=== PATIENT | female | born 2000 | race Caucasian/White ===

== ENCOUNTER 2025-01-22 13:11 | Outpatient (CLI) | payer BC, SELFPAY ==
--- OUTSIDE RECORDS SUMMARY | 2025-01-22 13:17 | XMS_ITS | Data Portability ---
Author Organization [facility] Address [address] [place] [address] Care Team Providers Care Can Closing Machine Tender Name Role Phone SHRADDHA HARRISON Primary Care Provider [phone] Assessment Encounter Date Assessment Date Assessment LastModified by Organization Details LastModified Time 04/05/2023 04/05/2023 Annual gynecological exam performed. Patient will come back in a year unless there are new symptoms. Not available 04/05/2023 15:04:35 Plan of Treatment Reminders Order Date Submit Date Provider Last Modified By Organization Details Last Modified Time Details Appointments None recorded. Lab dhea-sulfat e, serum 2024 025 [facility] (Lab), [address] [place], [address], 5 21:05:00 hormone panel, serum or plasma 2024 025 [facility] (Lab), [address] [place], [address], 5 21:05:02 progesteron e, serum 2024 025 [facility] (Lab), [address] [place], [address], 5 21:05:01 prolactin, serum 2024 025 [facility] (Lab), [address], [place], [address], 5 21:05:01 shbg (sex hormone-bin ding globulin), serum 2024 025 [facility] (Lab), [address], [place], [address], 5 21:05:02 testosteron e free/testos terone total, ratio, serum 2024 025 [facility] (Lab), [address], [place], [address], 5 21:05:03 test, urine 2024 025 [email or web address] [address], [address], [place], [address], 12:51:57 test, urine 2023 024 [email or web address] [address], [place], [address], 12:53:24 Referral None recorded. Procedures None recorded. Surgeries None recorded. Imaging None recorded. Medication Orders estradiol 2 mg tablet 2024 025 [place] [facility], [facility] [place], [address], 5 12:49:25 Diflucan 150 mg tablet 2022 023 [email or web address] [facility], [facility] [place], [address], 4 12:06:53 NuvaRing 0.12 mg-0.015 mg/24 hr vaginal 2022 023 [email or web address] [facility] [place] [address] [place], [address], 4 12:06:57 lidocaine 5 % topical ointment 2022 023 [facility], [address] [place], [address], 3 15:05:20 Anusol-HC 25 mg rectal suppository 2022 023 [facility], [address] , [place], [address], 3 15:05:16 Hemorrhoida l (phenylephr ine-hard fat) 0.25 %-88.7 % rectal suppository 2022 023 [facility], [facility] [place], [address], 3 15:05:10 Colace 100 mg capsule 2022 023 [facility], [facility] [place], [address], 3 15:05:07 Diflucan 150 mg tablet 2021 022 [email or web address] [facility], [facility] [place], [address], 4 12:06:53 Patient TargetsNo targets recorded. Patient InstructionsNo instructions recorded. Reason for Referral None Reported. Results Created Date Observation Date Name Description Value Unit Range Abnormal Flag Note LastModifiedBy Organization Detail LastModifiedTime 01/29/2001/28/2022 VAGIN ITIS/ VAGIN OSIS, DNA PROBE alvarado sp. detection, direct probe Negati ve negati ve Not Available [facility] [address] [facility], [place], [address], 01/29/2022 14:39:20 01/29/2001/28/2022 VAGIN ITIS/ VAGIN OSIS, DNA PROBE gardnerella vag. detection, direct probe Negati ve negati ve Not Available [facility] [address] [place] [address], [address], 01/29/2022 14:39:20 01/29/20 22 01/28/2022 VAGIN ITIS/ VAGIN OSIS, DNA PROBE trichomonas vag. detection, direct probe Negati ve negati ve Not Available [facility] [address] [place] [address], [phone], 01/29/2022 14:39:20 01/29/20 22 01/28/2022 CT/GC AND TRICH OMONA S VAGIN SOFIA (RRNA ), SWAB chlamydia trachomatis, PCR Negati ve negati ve Not Available [facility] [address] [place] [address], [phone], 01/29/2022 14:39:21 01/29/20 22 01/28/2022 CT/GC AND TRICH OMONA S VAGIN SOFIA (RRNA ), SWAB neisseria gonorrhoeae, PCR Negati ve negati ve Not Available [facility] [address] [place] [address], [phone], 01/29/2022 14:39:21 01/29/20 22 01/28/2022 CT/GC AND TRICH OMONA S VAGIN SOFIA (RRNA ), SWAB trichomonas vaginalis ribosomal RNA (rrna) Negati ve negati ve Not Available [facility] [address] [place] [address], [phone], 01/29/2022 14:39:21 04/05/20 23 04/05/2023 IMAGE GUIDE D PAP, REFLE X HPV IF ASCUS ONLY image guided Pap, reflex HPV ASCUS only SEE RESULT S BELOW CASE REPOR T: Cytol ogy Gynec ologi arlen Repor t Case: [id number] Autho rizin g Provi awilda: Meena harrell , Lois Sethi cted: 04/05 1704 HYDRODYNAMICIST Order ing Locat ion: [place] [facility] Recei kamaljit: 04/06 0920 First Scree n: Teresa Morrissey, CT Rescr een: Hussein Wise ed, CT Speci men: Scree antony Pap - Image d, Cervi x STATE MENT OF ADEQU ACY: Satis facto ry for evalu ation Trans forma tion zone compo nent prese nt FINAL DIAGN OSIS: Negat rebekah for Intra epith elial Lesio n or Sam baird (NIL) . Elect naina soliz negrita d by Hussein Wise ed, CT on 2022 at 5:10 PM ----- ----- ----- ----- ----- ----- ----- ----- ----- ----- ----- ----- ----- ----- ----- ----- ----- ---- COMME NT: This speci men was revie wed by a Cytot echno logis t and/o r Patho logis t (as indic ated in this repor t) after evalu ation using the Thinp rep Imagi ng Syste m. CLINI ARLEN INFOR MATIO N: Menst rual Statu s: LMP (if appli cable ): Clini arlen Histo ry/Pr eviou s Pap: Type of Neopl diana (if appli cable ): Signi fican t Clini arlen Findi ngs: Other Histo ry: Hormo adiel (if appli cable ): PAP EDUCA CHICHI L NOTE: The Pap Test is a scree antony test with an inher ent false negat rebekah rate. Liqui d-bas ed sampl ing may decre ase, but will not elimi jacqueline, false negat rebekah resul ts. A negat rebekah resul t does not precl ude the prese nce and/o r devel opmen t of disea se, since the prese nce of abnor mal cells in the sampl e depen ds on the locat ion of the lesio n and sampl ing techn ique. Kwasi nued regul ar scree antony is the best metho d of cance r preve ntion . If repor alana cytol ogic findi ng do not corre late with physi arlen and/o r histo rical findi ngs, furth er inves tigat ion is recom taylor d, as clini lora linares nted. Not Available [facility] (Lab) [address], [place], [address], 04/10/2023 18:14:09 04/05/20 23 04/05/2023 TRICH OMONA S VAGIN SOFIA (RRNA ) trichomonas vaginalis ribosomal RNA (rrna) Negati ve negati ve Not Available [facility] (Lab) [address], [place], [address], 04/10/2023 18:14:09 04/05/20 23 04/05/2023 CT/GC (JUWAN) , THINP REP VIAL chlamydia trachomatis, PCR Negati ve negati ve Not Available [facility] (Lab) [address], [place], [address], 04/10/2023 18:14:10 04/05/20 23 04/05/2023 CT/GC (JUWAN) , THINP REP VIAL neisseria gonorrhoeae, PCR Negati ve negati ve Not Available [facility] (Lab) [address], [place], [address], 04/10/2023 18:14:10 04/10/20 24 04/10/2024 CT/GC AND TRICH OMONA S VAGIN SOFIA (RRNA ), URINE chlamydia trachomatis, PCR Negati ve negati ve Not Available [facility] (Lab) [address], [place], [address], 04/11/2024 17:27:34 04/10/20 24 04/10/2024 CT/GC AND TRICH OMONA S VAGIN SOFIA (RRNA ), URINE neisseria gonorrhoeae, PCR Negati ve negati ve Not Available [facility] (Lab) [address], [place], [address], 04/11/2024 17:27:34 04/10/20 24 04/10/2024 CT/GC AND TRICH OMONA S VAGIN SOFIA (RRNA ), URINE trichomonas vaginalis ribosomal RNA (rrna) Negati ve negati ve Not Available [facility] (Lab) [address], [place], [address], 04/11/2024 17:27:34 04/10/20 24 04/10/2024 pregn olya test, urine HCG negati ve Not Available [facility] [address], [place], [address], 04/10/2024 12:53:11 01/08/20 25 01/07/2025 DHEA SULFA TE DHEA-sulfate 314 ug/dL Femal e Range s Age(y ) Range (ug/d L) 10-15 34-28 0 15-20 65-36 8 20-25 148-4 07 25-35 99-34 0 35-45 61-33 7 45-55 35-25 6 55-65 19-20 5 65-75 9-246 > 75 12-15 4 Not Available [facility] (Lab) [address], [place], [address], 01/12/2025 21:05:00 01/08/20 25 01/07/2025 PROGE STERO NE progesterone 0.18 NG/mL This assay was perfo rmed using [employer] ratio n reage nts and test kits. Value s obtai lion with other assay metho ds or kits canno t be used inter mendez eably . Femal e Proge stero ne Range s: Folli cular phase 0.06- 0.89 ng/mL Ovula tion phase 0.12- 12.00 ng/mL Lutea l phase 1.83- 23.90 ng/mL Postm enopa usal <0.05 -0.13 ng/mL Healt hy Pregn ant Women 1st Trime ster 11.0- 44.30 2nd Trime ster 25.40 -83.3 0 3rd Trime ster 58.70 -214. 00 Not Available [facility] (Lab) [address] [place], [address], 01/12/2025 21:05:01 01/08/20 25 01/07/2025 PROLA CTIN prolactin, total 8.54 NG/mL 4.79-2 3.30 This assay was perfo rmed using [employer] ratio n reage nts and test kits. Value s obtai lion with other assay metho ds or kits canno t be used inter mendez eably . Not Available [facility] (Lab) [address] [place], [address], 01/12/2025 21:05:01 01/08/20 25 01/07/2025 FSH, LH, ESTRA DIOL estradiol 58.1 pg/mL This assay was perfo rmed using [employer] ratio n reage nts and test kits. Value s obtai lion with other assay metho ds or kits canno t be used inter mendez eably . Femal e Estra diol Range s: Folli cular phase 12.4- 233 pg/mL Ovula tion phase 41.0- 398 pg/mL Lutea l phase 22.3- 341 pg/mL Postm enopa usal <5-13 8 pg/mL Healt hy Pregn ant Women 1st Trime ster 154-3 243 pg/mL 2nd Trime ster 1561- 77240 pg/mL 3rd Trime ster 8525- >3000 0 pg/mL Not Available [facility] (Lab) [address], [place], [address], 01/12/2025 21:05:02 01/08/20 25 01/07/2025 FSH, LH, ESTRA DIOL FSH 8.2 mIU/m L This assay was perfo rmed using [employer] ratio n reage nts and test kits. Value s obtai lion with other assay metho ds or kits canno t be used inter mendez eably . Femal es Folli cular : 3.5-1 2.5 mIU/m L Ovula tion: 4.7-2 1.5 mIU/m L Lutea l: 1.7-7 .7 mIU/m L Postm enopa use: 25.8- 134.8 mIU/m L Not Available [facility] (Lab) [address], [place], [address], 01/12/2025 21:05:02 01/08/20 25 01/07/2025 FSH, LH, ESTRA DIOL LH 23.7 mIU/m L This assay was perfo rmed using [employer] n reage nts and test kits. Value s obtai lion with other assay metho ds or kits canno t be used inter mendez eably . Femal es Mid-F ollic ular: 2.4-1 2.6 mIU/m L Mid-C ycle: 14.0- 95.6 mIU/m L Mid-L uteal : 1.0-1 1.4 mIU/m L Postm enopa use: 7.7-5 8.5 mIU/m L Not Available [facility] (Lab) [address], [place], [address], 01/12/2025 21:05:02 01/08/20 25 01/07/2025 HUMAN SEX HORMO NE JAYSHREE NG GLOBU LATRICE sex hormone binding globulin 66.7 nmole s/L 18.2-1 35.5 Not Available [facility] (Lab) [address] [place], [address], 01/12/2025 21:05:02 01/08/20 25 01/07/2025 TESTO STERO NE, FREE( DIALY SIS) AND TOTAL (LC/M S/MS) testosterone , total 57 NG/dL 2-45 high For addit ional kristie james e refer to http: //humberto bhat.que stdia gnost ics.c om/fa q/ Total Testo stero neLCM SMSFA Q165 (This link is being provi ded for infor matio nal/ educa chichi l purpo ses only. ) This test was devel oped and its dixon tical perfo rmanc e yadira cteri stics have been deter mined by [employer] [place], [place]. It has not been clear ed or appro kamaljit by the U.S. Food and Drug Admin istra tion. This assay has been valid ated pursu ant to the CLIA regul ation s and is used for clini arlen purpo ses. Not Available [facility] (Lab) [address], [place], [address], 01/12/2025 21:05:03 01/08/2001/07/2025 TESTO STERO NE, FREE( DIALY SIS) AND TOTAL (LC/M S/MS) testosterone , free 4.0 pg/mL 0.1-6. 4 This test was devel oped and its dixon tical perfo rmanc e yadira cteri stics have been deter mined by [employer] [place], [place]. It has not been clear ed or appro kamaljit by the U.S. Food and Drug Admin istra tion. This assay has been valid ated pursu ant to the CLIA regul ation s and is used for clini arlen purpo ses. Perfo rming Organ izati on Infor matio n: Site ID: AMD Name: [employer] [facility] Addre ss: [id number] [place], [place] Direc tor: Gabriel Baker MD PhD Not Available [facility] (Lab) [address], [place], [address], 01/12/2025 21:05:03 01/08/2001/07/2025 pregn olya test, urine HCG negati ve Not Available [address], [place], [address], 01/07/2025 12:51:34 Result Notes None recorded. Problems Name Problem SNOMED Code Status Onset Date Resolution Date Notes Provider Name and Address Organization Details Recorded Time Contrace ptive sheath status [id number] Completed 201811/09/2020 Encounter for routine checking of intrauter ine contracep dev;Recor ded Elsewhere : No Locati on: [facility] So urce: EHR Chron ic: N Practic e ID: [id number] Bill able Time: 01:00:00 PM Lina Joy [facility] 14:46:[address] Concept Completed 201911/09/2020 Encounter for other contracep tive managemen t;Recorde d Elsewhere : No Locati on: [facility] So urce: EHR Chron ic: N Practic e ID: [id number] Bill able Time: 01:15:00 PM 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 14:46:57 Pregnanc y test negative [id number] Completed 201711/09/2020 Encounter for test, result negative; Practice ID: 0001 Lina Joy [facility] 14:46:49 Pain in female genitali a Completed 201711/09/2020 Dysmenorr hea, unspecifi ed;Practi ce ID: 0001 Lina Joy [facility] 14:46:[address] Concept Completed 201811/09/2020 Encntr for routine child health exam w/o abnormal findings; Practice ID: 0001 Lina Joy [facility] 14:46:55 Uses combined oral contrace ption [id number] Completed 201811/09/2020 Encounter for initial prescript ion of contracep tive pills;Pra ctice ID: 0001 Lina [facility] 14:46:39 Finding of pattern of menstrua l cycle [id number] Completed 201711/09/2020 Irregular interval between menstrual bleeding; Recorded Elsewhere : No Locati on: [facility] So urce: EHR Chron ic: N Practic e ID: 0001 Bill able Time: 02:30:00 PM Lina [facility] 14:46:43 Insertio n of intraute rine contrace ptive device Completed 201811/09/2020 Encounter for insertion of intrauter ine contracep tive device;Re corded Elsewhere : No Locati on: [facility] So urce: EHR Chron ic: N Practic e ID: [id number] Bill able Time: 01:00:00 PM Lina [facility] 14:47:[address] Concept Completed 201711/09/2020 Encntr for general adult medical exam w/o abnormal findings; Recorded Elsewhere : No Locati on: [facility] So urce: EHR Chron ic: N Practic e ID: 0001 Bill able Time: 02:30:00 PM Lina [facility] 14:46:52 Problem Notes None recorded. Procedures Surgical History Date Name Laterality Status Provider Name and Address Organization Details Recorded Time 04/05/2023 Date of Last Pap Smear completed Delma Kothari [facility] 01/07/2025 12:37:14 Imaging Results None recorded. Procedure Notes None recorded. Medical Equipment None Reported. Allergies No known drug allergies Medications Name Sig Start Date Stop Date Status Note LastModified by Organization Details LastModified Time amoxicill in 500 mg capsule 04/05 completed Not Available Not Available Not Available oxcarbaze pine 150 mg tablet 04/05 completed Not Available Not Available Not Available Colace 100 mg capsule Take 1 capsule twice a day by oral route as directed for 7 days. 04/05 completed Not Available Not Available Not Available lamotrigi ne 200 mg tablet Take 1 tablet every day by oral route. active Not Available Not Available No t Available fluconazo le 150 mg tablet Take 1 tablet every day by oral route as directed for 1 day. 04/10 completed Not Available Not Available Not Available hydrocodo ne 5 mg-acetam inophen 325 mg tablet 04/05 completed Not Available Not Available Not Available prednison e 20 mg tablet 04/10 completed Not Available Not Available Not Available metronida zole 500 mg tablet active Not Available Not Available No t Available oxcarbaze pine 300 mg tablet 04/05 completed Not Available Not Available Not Available norethind felix 1 mg-ethiny l estradiol 20 mcg (21)-iron 75 mg (7) tablet take 1 tablet by oral route every day 01/28 completed Not Available Not Available Not Available hydrocort isone acetate 25 mg rectal supposito ry Insert 1 supposit ory twice a day by rectal route as directed for 7 days. 04/05 completed Not Available Not Available Not Available amoxicill in 875 mg tablet 11/19 completed Not Available Not Available Not Available estradiol 2 mg tablet Take 1 tablet every day by oral route for 10 days. 2024 active Not Available Not Available Not Avai lable NuvaRing 0.12 mg-0.015 mg/24 hr vaginal INSERT ONE RING VAGINALL Y LEAVE IN PLACE FOR 3 WEEKS, REMOVE FOR 1 WEEK 04/10 completed Not Available Not Available Not Available bupropion HCl XL 150 mg 24 hr tablet, extended release active Not Available Not Available Not Available Ortho-Cyc randi (28) 0.25 mg-35 mcg tablet take 1 tablet by oral route every day 02/20 completed Prescrib ed Elsewher e: No [facility] odify By: sgrotefe kamaljitt Lizbetho untdmitri DateTime : 01/25/20 11:15:00 AM Not Available Not Available Not Available lurasidon e 40 mg tablet active Not Available Not Available Not Available lurasidon e 20 mg tablet 04/05 completed Not Available Not Available Not Available lidocaine 5 % topical ointment APPLY TO AFFECTED AREA(S) BY TOPICAL ROUTE 1-4 TIMES DAILY NEEDED 04/05 completed Not Available Not Available Not Available Hemorrhoi flores (phenylep hrine-chi d fat) 0.25 %-88.7 % rectal supposito ry Insert 1 supposit ory twice a day by rectal route as needed for 7 days. 04/05 completed Not Available Not Available Not Available Vitals Date Recorded Systolic And Diastolic Provider Name and Address Organization Details Last Updated DateTime 09/15/2022 122/82 mm[Hg] Oapl Fabian, [facility]- [address], [place], [address], [facility] 09/15/2022 14:23:25 Date Recorded Body height Body mass index (BMI) Body weight Provider Name and Address Organization Details Last Updated DateTime 09/15/2022 170.82 cm 26.7 kg/m2 50778.89 g Kelsie Norris [facility] 09/15/2022 14:01:45 Date Recorded Body height Body mass index (BMI) Body weight Systolic And Diastolic Provider Name and Address Organization Details Last Updated DateTime 01/07/2025 170.82 cm 27.2 kg/m2 54224.66 g 125/81 mm[Hg] Delma Kothari [facility] 01/07/2025 12:36:50 Date Recorded Body height Systolic And Diastolic Provider Name and Address Organization Details Last Updated DateTime 01/28/2022 170.82 cm 118/74 mm[Hg] Lina Joy [facility] 01/28/2022 13:00:47 Date Recorded Body height Body mass index (BMI) Body weight Systolic And Diastolic Provider Name and Address Organization Details Last Updated DateTime 04/05/2023 170.82 cm 28.1 kg/m2 07170.22 g 123/77 mm[Hg] Kathleen Hutchinson [facility] 04/05/2023 15:05:01 Date Recorded Body height Body mass index (BMI) Body weight Systolic And Diastolic Provider Name and Address Organization Details Last Updated DateTime 04/10/2024 170.82 cm 24.9 kg/m2 53361.78 g 119/81 mm[Hg] Antonette Anthony [facility] 04/10/2024 12:06:44 Social History Question Answer Notes LastModified by Organizat ion Details LastModified Time Tobacco Smoking Status Never Smoker Lina Joy jed, [facility] 11/09/2020 14:49:41 Are You Blind Or Do You Have Difficulty Seeing? No Information n ot available 11/09/2020 What Is Your Level Of Caffeine Consumption? Moderate Information not available 11/09/2020 In The 14 Days Before Symptom Onset, Have You Had Close Contact With A Laboratory-confirm ed COVID-19 While That Case Was Ill? No Information n ot available 04/05/2023 In The 14 Days Before Symptom Onset, Have You Had Close Contact With A Person Who Is Under Investigation For COVID-19 While That Person Was Ill? No Information not available 04/05/2023 Have You Been To An Area Known To Be High Risk For COVID-19? No Information not available 04/05/2023 Are You Deaf Or Do You Have Serious Difficulty Hearing? No Information not available 11/09/2020 What Type Of Diet Are You Following? REGULAR Information n ot available 11/09/2020 What Is The Highest Grade Or Level Of School You Have Completed Or The Highest Degree You Have Received? [id number] Information not available 11/10/2020 Do You Use Your Seat Belt Or Car Seat Routinely? Yes Information not available 11/09/2020 Do You Have Smoke And Carbon Monoxide Detectors In Your Home? Yes Information not available 11/09/2020 Do You Use Sunscreen Routinely? Yes Information not available 11/09/2020 Sex: Unknown Functional Status Question Answer Note LastModified by Organizat ion Details LastModified Time Do you use any illicit or recreational drugs? Yes Marijuana Information not available 11/10/2020 What is your level of alcohol consumption? None Information not available 11/09/2020 Are you currently employed? Yes Information not available 11/10/2020 Are you able to walk? 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 Occasional Information not available 11/09/2020 Mental Status Question Answer Note LastModified by Organization D etails LastModified Time Do you feel stressed (tense, restless, nervous, or anxious, or unable to sleep at night)? [id number] Information not available 11/09/2020 Family History Relationship Description Onset Age of this Age Resolved Age Notes LastModified by Organization Details LastModified Time Maternal Uncle Diabetes mellitus Not available 2020 14:48:07 Medical History Condition Response Allergies (Food, seasonal, environmental ) N Other Y Breast Cancer N Drug/Latex Allergies/Reactions N Blood Transfusion N Dermatologic Disorders N Lung Disease N Defects or Inherited Disease N Breast Problem N Gestational Diabetes N Hematologic disorders N Anesthesia Complications N History of STI N Deep Vein Thrombosis N Polycystic ovary syndrome N Anxiety Disorder N Autoimmune disease N Arthritis N Infertility N Polyps N Acid Reflux (GERD) N History of abnormal pap N Cancer N Stroke N Varicosities N Neurologic/Epilepsy N Endometriosis N High Cholesterol N Headaches N Fibromyalgia N Kidney Disease N Heart Problems N Kidney or Bladder Problems N Thyroid Problems N GI Problems N Eating Disorder N Anemia N Art (IVF or FET) N Psychiatric Illness N Ovarian Cancer N Diabetes N Pulmonary (TB, Asthma) N Hepatitis/Liver Disease N No Past Medical History N Eczema N Urinary Tract Infection N Abuse/Domestic Violence N Asthma N Trauma/Violence N Depression/ depression N Heart Disease N Pre-Eclampsia N Hypertension N Osteoporosis N Thrombophilias N Gynecological History Statement/Question Response Flow Moderate Date of LMP 01/07/2025 Was last menstrual period normal N STIs/STDs N HPV Vaccine Y 11 Current Control Method Condoms Are cycles usually normal N Sexually Active? Y Menses Monthly Y Age of first menstrual cycle 11 Date of Last Pap Smear 04/05/2023 Sexual Problems? N LMP Definite Obstetrics History GPAL:G 0 P 0 0 0 0 Type Value Living 0 Total 0 Past Encounters Encounter ID Performer Location Encounter Start Date Encounter Closed Date Diagnosis/Indication Diagnosis SNOMED-CT Code Diagnosis ICD10 Code Diagnosis Note [id number] [facility] [address] [address] 11/10/2020 09:29:17 11/10/2020 09:58:58 Gynecologic examination 35897396 Z01.419 Take Calcium with Vitamin D 1200mg daily if not receiving in daily diet. It is strongly advised to have an annual flu shot and up can obtain at most pharmacies . If you have not had a TDap shot in the last 10 years you should obtain one as well. Discussed with patient & provided with informatio n regarding Gardisil vaccine to prevent the 4 strains for HPV that cause cervical cancer. Encourage safe sexual practices, to use condoms and limit partners if not already in a monogamous relationsh ip. Do monthly self breast exams. BRCA testing is now available for patients with strong genetic history of female cancer. If interested contact the office. Engage in daily exercise of low impact aerobic exercise 45-60 minutes 4-5 times weekly. Avoid tobacco, illicit drugs, and alcohol. This lifestyle behavior pattern will lead to less health conditions and longer life span. If BMI greater than 25 weight watchers or dietary consult advised. Pap smear is not recommende d prior to the age of 21. If you have any concerns, pelvic, or vaginal problems we can discuss testing. Patient received above instructio ns, and questions have been answered. If you have any questions please call or respond to this email. Patient was made aware of the patient portal and may obtain a paper copy of today's plan if desired. Pap smear start 22yo Doing well no issues. 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 Declined need std screening Happy on Loestrin FE 07/29 [id number] ELKIN [facility] [address] [address] 11/19/2021 12:35:04 11/19/2021 13:10:43 Gynecologic examination [id number] Z01.419 Take Calcium with Vitamin D 1200mg daily if not receiving in daily diet. It is strongly advised to have an annual flu shot and up can obtain at most pharmacies . If you have not had a TDap shot in the last 10 years you should obtain one as well. Discussed with patient & provided with informatio n regarding Gardisil vaccine to prevent the 4 strains for HPV that cause cervical cancer. Encourage safe sexual practices, to use condoms and limit partners if not already in a monogamous relationsh ip. Do monthly self breast exams. BRCA testing is now available for patients with strong genetic history of female cancer. If interested contact the office. Engage in daily exercise of low impact aerobic exercise 45-60 minutes 4-5 times weekly. Avoid tobacco, illicit drugs, and alcohol. This lifestyle behavior pattern will lead to less health conditions and longer life span. If BMI greater than 25 weight watchers or dietary consult advised. Pap smear is not recommende d prior to the age of 21. If you have any concerns, pelvic, or vaginal problems we can discuss testing. Patient received above instructio ns, and questions have been answered. If you have any questions please call or respond to this email. Patient was made aware of the patient portal and may obtain a paper copy of today's plan if desired.Pr imary pap next yearDeclin ed std screenWant s to trial Nuvaring vs OCP so doesn't have to think about BC daily. [facility] [id number] Z30.9 Discussed all control options in great detail. Pt would like to start nuvaring. She is aware of the risks and benefits. She does not have any medical condition that is contraindi cated with the use of estrogen containing control. Pt will place the nuvaring on the first monday following the start of her period. She is aware it is not effective for control the first month. She is also aware of the importance of timely insertion and removal. Encouraged use of condoms as the nuvaring does not protect against STD's. Will return in 3 months for med check. Consent was read and signed. Pt verbalized understand ing. will call if any issues prior to 3mos med check [id number] Opal [facility] [address] [address] 01/28/2022 12:50:52 01/31/2022 16:17:42 Vaginitis 40101388 N76.0 Suspect yeast one examSwabs sentRx sentWill contact if further treatment needed. Counseled on medication R/B's, Most common side effects, & use. All questions were answered to patient satisfacti on. Time spent in visit is a total of 15 mins with at least 50% of visit consisting of counseling and review of plan of care. [id number] Opal Fabian , [facility] [address],[facility] [place] [address] 09/15/2022 13:53:24 09/15/2022 14:28:25 Thrombosed external hemorrhoids [id number] K64.5 Today we discuss using rx'd products PRN.If issues worsen go to Urgent care/PCP for referral.N ot unbearable & still small.Dax mmendation s should help to improve & sx relief.Sit z bathsColac e soft BM's Counseled on medication R/B's, Most common side effects, & use. All questions were answered to patient satisfacti on. Time spent in visit is a total of 15 mins with at least 50% of visit consisting of counseling and review of plan of care. [id number] Opal Fabian , [facility] [address],[place] [address] 04/05/2023 14:49:38 04/05/2023 16:40:27 Gynecologic examination [id number] Z01.419 Take Calcium with Vitamin D 1200mg daily if not receiving in daily diet. It is strongly advised to have an annual flu shot and up can obtain at most pharmacies . If you have not had a TDap shot in the last 10 years you should obtain one as well. Discussed with patient & provided with informatio n regarding Gardisil vaccine to prevent the 4 strains for HPV that cause cervical cancer. Encourage safe sexual practices, to use condoms and limit partners if not already in a monogamous relationsh ip. Do monthly self breast exams. BRCA testing is now available for patients with strong genetic history of female cancer. If interested contact the office. Engage in daily exercise of low impact aerobic exercise 45-60 minutes 4-5 times weekly. Avoid tobacco, illicit drugs, and alcohol. This lifestyle behavior pattern will lead to less health conditions and longer life span. If BMI greater than 25 weight watchers or dietary consult advised. Pap smear is not recommende d prior to the age of 21. If you have any concerns, pelvic, or vaginal problems we can discuss testing. Patient received above instructio ns, and questions have been answered. If you have any questions please call or respond to this email. Patient was made aware of the patient portal and may obtain a paper copy of today's plan if desired.Anders nolasco sentSTD Screen sentGeneti c Screen discussedC olon Screen naDexa Screen naRoutine Labs PCP Contracept ion care management [id number] Z30.9 Happy on nuvaringWi shes to continueRF sent x 1yr Vaginitis [id number] N76.0 Suspect yeast on examWill update if any other issues present on pap Counseled on medication R/B's, Most common side effects, & use. All questions were answered to patient satisfacti on. [id number] ANAHI GARCIA MD [facility] [address] [address] 04/10/2024 11:48:01 04/10/2024 14:19:11 Venereal disease screening [id number] Z11.3 Pt requested STI testing.Di scussed the various types of STDs, related symptoms and the potential consequenc es (including effects on fertility) of STD infections . Reviewed ways to limit exposure and prevention techniques . Screening procedure 2012 5006 Z13.9 [id number] Syed Lamar MD [facility] [address] [address] 01/07/2025 12:24:43 01/07/2025 13:05:42 Abnormal uterine bleeding [id number] 9100 N93.9 The patient and I discussed the various causes of abnormal uterine bleeding, including polyps, fibroids, hyperplasi a, atypia, anovulatio n, hormonal changes, etc.Hormon e labs ordered. UPT negative. Patient declined pelvic exam today. Pap smear UTD (2022 WN).Discu ssed treatment options, such as hormonal control, Lysteda, etc. Patient states that she does not want to start a hormonal control method.Rx sent for estradiol 2 mg PO daily x 10 days to help stop the bleeding.D iscussed that if frequent, heavy cycles continue, pelvic ultrasound is recommende d for further evaluation .Patient verbalizes understand ing and agreement with plan of care. Health Concerns Section Related Observation LastModified by Organization Detai ls LastModified Time None Recorded Concern Status LastModified by Organization Details LastModified Time None Recorded Advance Directives Directive None Recorded Payers Insurance Date Sequence Insurance Name Policy Number Policy Schilling Covered Member ID Schilling Member ID Guarantor Name 01/06/2025 1 [place] [id number] Otis Canchola Rodneygreg [id number] Barb Montes Anna Marie 01/07/2025 1 [place] [id number] Barb Thrasher [id number] Barb Thrasher Notes Date Note Type Note Provider Name and Address Organization Details Recorded Time 01/28/2022 text/html Here today for d/c, irritation, itch.Has nuvaring.No new sexual partnerNeg urinary sx'sNeg gi sx'sNeg pelvic painNeg vag odor [facility] [address], [place], [address], [facility] 01/28/2022 17:39:17 09/15/2022 text/html Here today for concern of symptomatic ext hemorrhoid.Sx's started 1 day agoFeels swollen, somewhat tender, but not unbearable with sitting or daily activity.Her BMs are easily evacuated but does have a hx of constipationHas not tried anything for this issue. Neg pain of abd/pelvis/flankNe g urinary sx'sNeg GI sx'sNeg N/V/F/C/DNeg Vag d/c, odor, irritation, itching [facility] [address], [place], [address], [facility] 09/15/2022 14:25:43 04/05/2023 text/html Annual GYNReport ed bypatient.Menstrua l cycle:Normal menses Urinary symptoms:No hematuria; No incontinence Vulva:No genital lesion Vagina:White;Vagin al itching Breast:No breast pain; No breast lump; No nipple discharge Current Contraception:Sati sfied with current contraception; Nuvaring Sexual complaints:No sexual complaints; No pain during intercourse; Normal libido Menopausal Symptoms:No menopausal symptoms; Normal vaginal lubrication Psychological symptoms:No depression; No anxiety; No PMDD Preventive measures:Encourage self breast examination; Encourage regular exercise; Encourage no tobacco use; Encourage regular mammograms starting age 40; Followed with yearly pap smears Opal Fabian, [facility] [address], [place], [address], [facility] 04/05/2023 16:40:22 04/10/2024 text/html Patient presents for STI testing. Patient denies symptoms. Patient also requests a test, denies missed period. 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 Patient declines BC as she states that she does not plan to become sexually active again in the near future. VON FERRELL NP [address], [place], [address], [facility] 04/10/2024 17:07:53 01/07/2025 text/html 24 y/o female presents to discuss heavy, frequent periods.Patient states that she has had a period every 14 days for the past two months and each last 6-7 days with heavy flow.Patient states that she has been changing pads and tampons q 2-3 hours, almost bleed through clothes at nightPatient states that she went to PCP recently and had annual labs that showed low iron and hemoglobin. Patient was prescribed an iron supplement to take daily.Patient reports that she has hemorrhoid surgery scheduled in two weeks. Neg pain of abd/pelvis/flankNe g urinary sx'sNeg GI sx'sNeg N/V/F/C/DNeg Vag d/c, odor, irritation, itching VON FERRELL NP [address], [place], [address], [facility] 01/07/2025 13:05:15 OBGyn Episode No OBEpisode recorded.
--- OUTSIDE RECORDS SUMMARY | 2025-01-22 13:17 | XMS_ITS | Clinical Summary ---
Author Organization [facility] Address [address] [place] [address] Phone Care Team Providers Care Finished Cloth Examiner Name Role Phone Provider, None Primary Care Provider Unavailabl e Medications lamoTRIgine (LaMICtal) 200 MG Tablet Take 200 mg by mouth daily. Active norethindrone-et hinyl estradiol (ORTHO-NOVUM 1-35 TAB, NORTREL 1-35 TAB) 1-35 MG-MCG Tablet Take 1 Tablet by mouth daily. Active LURASIDONE HCL PO Take by mouth. Active Active Problems Problem Noted Date Diagnosed Date Bipolar II disorder, mild, depressed, with anxio us distress 09/15/2021 Family History Medical History Relation Name Comments Anxiety disorder Maternal Grandmother ADD / ADHD Mother Relation Name Status Comments Maternal Grandmother Mother Social History Tobacco Use Types Packs/Day Years Used Date Smoking Tobacco: Never Smokeless Tobacco: Current PHQ-2 Answer Date Recorded Total Score - Questions 1-9 1 03/2022 Sexually Active Control Partners Comments Yes Oral Contraceptive Comments Unknown Sex and Gender Information Value Date Recorded Sex Assigned at Not on file Legal Sex Female 7:07 PM CDT Gender Identity Not on file Sexual Orientation Not on file Plan of Treatment Health Maintenance Due Date Last Done Comments Hepatitis C Virus (HCV) Screening 2001 Pap Smear 2022 SARS-COV-2 Immunization ( season) 2024 09/21/2021, 11/17/2020, 10/20/2020 Influenza Immunization (#1) 2025 03/21/2019, 1 08/27/2017 Respiratory Syncytial Virus (RSV) Immunization (Adult) (1 - 1-dose 75+ series) 2076 Hepatitis B Immunization Completed 002, 03/21/2002, 2001, Additional history exists Pneumococcal Immunization Combined Aged Out 06/12/2002, 03/25/2002, 2001, Additional history exists No longer eligible based on patient's age to complete this topic Human Papillomavirus (HPV) Immunization Completed 06/23/2017, 02/03/2016 Meningococcal Immunization (ACWY) Completed 06/23/2017, 12/05/2012 Meningococcal B Immunization Completed 03/21/2019, 06/26/2018 DTaP/Tdap/Td Immunization Discontinued 2020, 12/28/2011, 03/01/2007, Additional history exists TdaP Immunization Completed 06/02/2021, 12/28/2011 Rotavirus Immunization Aged Out No lo nger eligible based on patient's age to complete this topic Goals Goal Patient Goal Type Associated Problems Recent Progress Patient-Stated? Author Behavioral Health Behavioral Health On track(2024 3:02 PM PHYSICIAN AIDE) Yes Estelle Bates, CHRISTINE Note: I need to cope better with relationship stressors and be more assertive will have increased awareness and insight regarding healthy relationships, ex: feeling increased comfort with first attending to personal needs before attending to the needs of others. Goal Reviewed today with: patient Readiness to change: Ready to change Department associated with goal: [facility] Steps to achieve goal: 1. will learn to identify unhealthy and healthy characteristics/patterns/behaviors of relationships within the next 8-10 sessions 2. will verbalize increased confidence in setting healthy boundaries with others within the next 8-10 sessions 3. will report increased engagement in self-care, both physical and emotional, within the next 8-10 sessions 4. Will attend individual and/or group therapy at least 1x/month reduce stress Behavioral Health On track(2024 3:02 PM PHYSICIAN AIDE) No Estelle Bates LCSW Note: Goal Reviewed today with: patient Readiness to change: Ready to change Department associated with goal: [facility] Steps to achieve goal: will attend counseling/psychotherapy sessions at least once monthly, utilizing individual and/or group sessions to express thoughts and feelings. will verbalize understanding of depression and anxiety, ex: causes/contributing and risk factors, prevalence of conditions in the general population within the next 8-10 sessions will identify two or more skills to gain peace and relieve stress within the next 8-10 sessions Insurance [facility] Care Teams Finished Cloth Examiner Relationship Specialty Start Date End Date Provider, None [place] PCP - General 08/20/21
[2025-01-22 13:39] LABS: Hematocrit 35.7 % (37.0-47.0); Hemoglobin 11.3 g/dL (12.0-15.0)
== END 2025-01-22 13:12 | disposition home or self-care (01) ==
LOC: ANHSURGERY 13:16
PROVIDERS: Anesthesiology; PCP Internal Medicine; Visit Provider Surgery
DX: D64.9 Anemia, unspecified (principal)
CPT/HCPCS: 36415; 85014; 85018

== ENCOUNTER 2025-01-24 | Day surgery (SDC) | payer BC, SELFPAY ==
--- NOTE | 2025-01-21 15:36 | PC.NURSE ---
Report to the Outpatient Waiting Room, entrance under the green pavilion located off [facility], at time 0730 on date 01/24/25. Planned Procedure Time: 0930.? Time changes happen often and if your time is changed the preop area will call you the afternoon before. - You and your visitor will be asked to self-screen and do not enter if you have any COVID symptoms. Please call surgeon if you need to reschedule. - A mask is optional within the hospital at this time. Nothing to eat or drink after midnight per surgeon's pre-op order set. Take only the following medications with a SIP of water on the morning of surgery: lamotrigine DO NOT STOP ANY OF YOUR OTHER PRESCRIPTION MEDICATIONS PRIOR TO SURGERY EXCEPT THE FOLLOWING Hold all vitamins and supplements for 3 days per anesthesiologist. Medications to discontinue per physician ferrous sulfate Date to take last dose 01/21/25 Please no make-up, nail armenian, hairspray, perfume, deodorant, or body powder the day of surgery.? No jewelry (including any body piercings) or valuables the day of surgery, leave them at home.? Please take a shower or bath the night before, or the morning of, surgery with an antibacterial soap.? Wear comfortable, loose fitting clothing.? Children are encouraged to wear pajamas. - Jewelry must be removed prior to entering the operating room.? Rings and piercings that are not removed may be cut off. - The hospital will not accept responsibility for valuables.? - Please leave all valuables, including medications, at home the day of surgery. If you are going home after surgery, a licensed driver recruiter must drive you home.? - NO public transportation without another adult if you receive anesthesia. - We recommend that an adult stay with you for 24 hours following discharge. - We also recommend that you do not drive, make important decision, drink alcoholic beverages, or take any drugs that were not prescribed by your health care provider for at least 24 hours after your discharge time. For Pediatric surgeries, we recommend two adults accompany the child home. Follow any additional instructions given to you from your surgeon. Telephone instructions given to Patient- Barb Thrasher and asked if any additional questions and then verbalized understanding. Patient advised to call surgeon office or pre surgery nurse liaison [phone] if any additional questions.
[2025-01-21 15:46] VITALS: BMI 25.9
[2025-01-24] VITALS (7 sets, daily range): BP systolic 112–131; BP diastolic 60–76; PULSE 64–115; RESP 12–16; TEMP 36.6–37.3; O2SAT 96–100
--- OUTSIDE RECORDS SUMMARY | 2025-01-24 00:01 | XMS_ITS | Clinical Summary ---
Author Organization [facility] Address [address] [place] [address] Phone Care Team Providers Care Chief Of Staff Doctor Name Role Phone Provider, None Primary Care [...] Health Behavioral Health On track(2024 3:02 PM FUNERAL GREETER) Yes Estelle Bates, CHRISTINE Note: I need to cope better with relationship stressors and be more assertive will have increased awareness and insight regarding healthy relationships, ex: feeling increased comfort with first attending to personal needs before attending to the needs of others. Goal Reviewed today with: patient Readiness to change: Ready to change Department associated with goal: [facility] Steps to achieve [...] stress Behavioral Health On track(2024 3:02 PM FUNERAL GREETER) No Estelle Bates LCSW Note: Goal Reviewed [...] stress within the next 8-10 sessions Insurance [facility] Care Teams Chief Of Staff Doctor Relationship Specialty Start Date End Date Provider, None [place] PCP - General 08/20/21
--- OUTSIDE RECORDS SUMMARY | 2025-01-24 00:02 | XMS_ITS | Data Portability ---
Author Organization [facility], [facility] Address [address] [place] [address] Care Team Providers Care Offbearer Name Role Phone SHRADDHA HARRISON Primary Care Provider Assessment Encounter Date Assessment Date Assessment LastModified by Organization Details LastModified Time 04/05/2023 04/05/2023 Annual gynecological exam performed. Patient will come back in a year unless there are new symptoms. Not available 04/05/2023 15:04:35 Plan of Treatment Reminders Order Date Submit Date Provider Last Modified By Organization Details Last Modified Time Details Appointments None recorded. Lab dhea-sulfat e, serum 2024 025 [facility] (Lab), [address] [place], [address], 5 21:05:00 hormone panel, serum or plasma 2024 025 [facility] (Lab), [address] [place], [address], 5 21:05:02 progesteron e, serum 2024 025 [facility] (Lab), [address] [place], [address], 5 21:05:01 prolactin, serum 2024 025 [facility] (Lab), [address] [facility], [place], [address], 5 21:05:01 shbg (sex hormone-bin ding globulin), serum 2024 025 [facility] (Lab), [address] [facility], [place], [address], 5 21:05:02 testosteron e free/testos terone total, ratio, serum 2024 025 [facility] (Lab), [address] [facility], [place], [address], 5 21:05:03 test, urine 2024 025 [email or web address] [place], [address], [place], [address], 12:51:57 test, urine 2023 024 [email or web address] [place], [address], [place], [address], 12:53:24 Referral None recorded. Procedures None recorded. Surgeries None recorded. Imaging None recorded. Medication Orders estradiol 2 mg tablet 2024 025 [place] [facility], [facility] [place], [address], 5 12:49:25 Diflucan 150 mg tablet 2022 023 [email or web address] [facility] [address], [address], 4 12:06:53 NuvaRing 0.12 mg-0.015 mg/24 hr vaginal 2022 023 [email or web address] [facility] [place] [address] [place], [address], 4 12:06:57 lidocaine 5 % topical ointment 2022 023 [facility] [place], [address] [place], [address], 3 15:05:20 Anusol-HC 25 mg rectal suppository 2022 023 [facility] [place], [address] , [place], [address], 3 15:05:16 Hemorrhoida l (phenylephr ine-hard fat) 0.25 %-88.7 % rectal suppository 2022 023 [facility] [place], [address] [place], [address], 3 15:05:10 Colace 100 mg capsule 2022 023 [facility] [place], [address] [place], [address], 3 15:05:07 Diflucan 150 mg tablet 2021 022 [email or web address] [facility] [place], [facility] [place], [address], 4 12:06:53 Patient TargetsNo targets recorded. Patient InstructionsNo instructions recorded. Reason for Referral None Reported. Results Created Date Observation Date Name Description Value Unit Range Abnormal Flag Note LastModifiedBy Organization Detail LastModifiedTime 01/29/2001/28/2022 VAGIN ITIS/ VAGIN OSIS, DNA PROBE alvarado sp. detection, direct probe Negati ve negati ve Not Available [facility] [address] [place], [address], 01/29/2022 14:39:20 01/29/20 22 01/28/2022 VAGIN ITIS/ VAGIN OSIS, DNA PROBE gardnerella vag. detection, direct probe Negati ve negati ve Not Available [facility] [address] [place] [address], [address], 01/29/2022 14:39:20 01/29/20 22 01/28/2022 VAGIN ITIS/ VAGIN OSIS, DNA PROBE trichomonas vag. detection, direct probe Negati ve negati ve Not Available [facility] [address] [place] [address], [address], 01/29/2022 14:39:20 01/29/20 22 01/28/2022 CT/GC AND TRICH OMONA S VAGIN SOFIA (RRNA ), SWAB chlamydia trachomatis, PCR Negati ve negati ve Not Available [facility] [address] [place] [address], [address], 01/29/2022 14:39:21 01/29/20 22 01/28/2022 CT/GC AND TRICH OMONA S VAGIN SOFIA (RRNA ), SWAB neisseria gonorrhoeae, PCR Negati ve negati ve Not Available [facility] [address] [place] [address], [address], 01/29/2022 14:39:21 01/29/20 22 01/28/2022 CT/GC AND TRICH OMONA S VAGIN SOFIA (RRNA ), SWAB trichomonas vaginalis ribosomal RNA (rrna) Negati ve negati ve Not Available [facility] [address] [place] [address], [address], 01/29/2022 14:39:21 04/05/20 23 04/05/2023 IMAGE GUIDE D PAP, REFLE X HPV IF ASCUS ONLY image guided Pap, reflex HPV ASCUS only SEE RESULT S BELOW CASE REPOR T: Cytol ogy Gynec ologi arlen Repor t Case: [id number] Autho rizin g Provi awilda: Meena harrell , Lois Sethi cted: 04/05 1704 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 Not Available [facility] (Lab) [address] [facility], [place], [address], 04/10/2023 18:14:09 04/05/20 23 04/05/2023 TRICH OMONA S VAGIN SOFIA (RRNA ) trichomonas vaginalis ribosomal RNA (rrna) Negati ve negati ve Not Available [facility] (Lab) [address] [facility], [place], [address], 04/10/2023 18:14:09 04/05/20 23 04/05/2023 CT/GC (JUWAN) , THINP REP VIAL chlamydia trachomatis, PCR Negati ve negati ve Not Available [facility] (Lab) [address] [facility], [place], [address], 04/10/2023 18:14:10 04/05/20 23 04/05/2023 CT/GC (JUWAN) , THINP REP VIAL neisseria gonorrhoeae, PCR Negati ve negati ve Not Available [facility] (Lab) [address] [facility], [place], [address], 04/10/2023 18:14:10 04/10/20 24 04/10/2024 CT/GC AND TRICH OMONA S VAGIN SOFIA (RRNA ), URINE chlamydia trachomatis, PCR Negati ve negati ve Not Available [facility] (Lab) [address] [facility], [place], [address], 04/11/2024 17:27:34 04/10/20 24 04/10/2024 CT/GC AND TRICH OMONA S VAGIN SOFIA (RRNA ), URINE neisseria gonorrhoeae, PCR Negati ve negati ve Not Available [facility] (Lab) [address] [facility], [place], [address], 04/11/2024 17:27:34 04/10/20 24 04/10/2024 CT/GC AND TRICH OMONA S VAGIN SOFIA (RRNA ), URINE trichomonas vaginalis ribosomal RNA (rrna) Negati ve negati ve Not Available [facility] (Lab) [address] [facility], [place], [address], 04/11/2024 17:27:34 04/10/20 24 04/10/2024 pregn olya test, urine HCG negati ve Not Available [place] [address], [place], [address], 04/10/2024 12:53:11 01/08/20 25 01/07/2025 DHEA SULFA TE DHEA-sulfate 314 ug/dL Femal e Range s Age(y ) Range (ug/d L) 10-15 34-28 0 15-20 65-36 8 20-25 148-4 07 25-35 99-34 0 35-45 61-33 7 45-55 35-25 6 55-65 19-20 5 65-75 9-246 > 75 12-15 4 Not Available [facility] (Lab) [address] [facility], [place], [address], 01/12/2025 21:05:00 01/08/20 25 01/07/2025 PROGE STERO [...] Trime ster 58.70 -214. 00 Not Available [facility] (Lab) [address] [place], [address], 01/12/2025 21:05:01 01/08/20 25 01/07/2025 PROLA CTIN prolactin, total 8.54 NG/mL 4.79-2 3.30 This assay was perfo rmed using [employer] ratio n reage nts and test kits. Value s obtai lion with other assay metho ds or kits canno t be used inter mendez eably . Not Available [facility] (Lab) [address] [place], [address], 01/12/2025 21:05:01 01/08/20 25 01/07/2025 FSH, LH, [...] 154-3 243 pg/mL 2nd Trime ster 1561- 31573 pg/mL 3rd Trime ster 8525- >3000 0 pg/mL Not Available [facility] (Lab) [address] [place], [address], 01/12/2025 21:05:02 01/08/20 25 01/07/2025 FSH, LH, [...] use: 25.8- 134.8 mIU/m L Not Available [facility] (Lab) [address] [facility], [place], [address], 01/12/2025 21:05:02 01/08/20 25 01/07/2025 FSH, LH, [...] use: 7.7-5 8.5 mIU/m L Not Available [facility] (Lab) [address] [facility], [place], [address], 01/12/2025 21:05:02 01/08/20 25 01/07/2025 HUMAN SEX HORMO NE JAYSHREE NG GLOBU LATRICE sex hormone binding globulin 66.7 nmole s/L 18.2-1 35.5 Not Available [facility] (Lab) [address] [place], [address], 01/12/2025 21:05:02 01/08/20 25 01/07/2025 TESTO STERO [...] cteri stics have been deter mined by [employer] ostic s [place]. It has not been clear ed or appro kamaljit by the U.S. Food and Drug Admin istra tion. This assay has been valid ated pursu ant to the CLIA regul ation s and is used for clini arlen purpo ses. Not Available [facility] (Lab) [address] [facility], [place], [address], 01/12/2025 21:05:03 01/08/2001/07/2025 TESTO STERO NE, FREE( DIALY SIS) AND TOTAL (LC/M S/MS) testosterone , free 4.0 pg/mL 0.1-6. 4 This test was devel oped and its dixon tical perfo rmanc e yadira cteri stics have been deter mined by [employer] ostic [employer] [place]. It has not been clear ed or appro kamaljit by the U.S. Food and Drug Admin istra tion. This assay has been valid ated pursu ant to the CLIA regul ation s and is used for clini arlen purpo ses. Perfo rming Organ izati on Infor mat n: Site ID: AMD Name: [employer] zoe s [address] [facility] Addre ss: [id number] [place], [place] Direc tor: Gabriel Baker MD PhD Not Available [facility] (Lab) [address] [facility], [place], [address], 01/12/2025 21:05:03 01/08/2001/07/2025 pregn olya test, urine HCG negati ve Not Available [place] [address], [place], [address], 01/07/2025 12:51:34 Result Notes None recorded. Problems Name Problem SNOMED Code Status Onset Date Resolution Date Notes Provider Name and Address Organization Details Recorded Time SNOMED CT Concept Completed 201711/09/2020 Encntr for stereotyper apprentice exam (general) (routine) w/o abn findings; [facility] ID: 0001 [facility] 14:46:57 Pregnanc y test negative [id number] Completed 201711/09/2020 Encounter for test, result negative; Practice ID: 0001 Lina Joy [facility] 14:46:49 Finding of pattern of menstrua l cycle [id number] Completed 201711/09/2020 Irregular interval between menstrual bleeding; Recorded Elsewhere : No Locati on: [facility] So urce: EHR Chron ic: N Practic e ID: 0001 Bill able Time: 02:30:00 PM Lina Joy [facility] 14:46:[address] Concept Completed 201711/09/2020 Encntr for general adult medical exam w/o abnormal findings; Recorded Elsewhere : No Locati on: [facility] So urce: EHR Chron ic: N Practic e ID: 0001 Bill able Time: 02:30:00 PM Lina Joy [facility] 14:46:52 Pain in female genitali a Completed 201711/09/2020 Dysmenorr hea, unspecifi ed;Practi ce ID: 0001 Lina Joy [facility] 14:46:[address] Concept Completed 201811/09/2020 Encntr for routine child health exam w/o abnormal findings; Practice ID: 0001 Lina Joy [facility] 14:46:55 Contrace ptive sheath status [id number] Completed 201811/09/2020 Encounter for routine checking of intrauter ine contracep dev;Recor ded Elsewhere : No Locati on: [facility] So urce: EHR Chron ic: N Practic e ID: 0001 Bill able Time: 01:00:00 PM Lina Joy [facility] 14:46:33 Insertio n of intraute rine contrace ptive device Completed 201811/09/2020 Encounter for insertion of intrauter ine contracep tive device;Re corded Elsewhere : No Locati on: [facility] So urce: EHR Chron ic: N Practic e ID: 0001 Bill able Time: 01:00:00 PM Lina [facility] 14:47:35 Uses combined oral contrace ption [id number] Completed 201811/09/2020 Encounter for initial prescript ion of contracep tive pills;Pra ctice ID: 0001 Lina [facility] 14:46:[address] Concept Completed 201911/09/2020 Encounter for other contracep tive managemen t;Recorde d Elsewhere : No Locati on: [facility] So urce: EHR Chron ic: N Practic e ID: 0001 Bill able Time: 01:15:00 PM Linajj Joy [facility] 14:47:00 Problem Notes None recorded. Procedures Surgical History Date Name Laterality Status Provider Name and Address Organization Details Recorded Time 04/05/2023 Date of Last Pap Smear completed Delma Kothari [facility] 01/07/2025 12:37:14 Imaging Results None recorded. [...] route every day 02/20 completed Prescrib ed Elsew e: No Locat ion: Trevor chatterjee [facility] M odify By: sgrotefe kamaljitt Lizbetho untdmitri [...] Details Last Updated DateTime 09/15/2022 122/82 mm[Hg] Opal Fabian, [facility]- [address], [place], [address], [facility] 09/15/2022 14:23:25 Date Recorded Body height Body mass index (BMI) Body weight Provider Name and Address Organization Details Last Updated DateTime 09/15/2022 170.82 cm 26.7 kg/m2 84571.89 g Kelsie Norris [facility] 09/15/2022 14:01:45 Date Recorded Body height Body mass index (BMI) Body weight Systolic And Diastolic Provider Name and Address Organization Details Last Updated DateTime 01/07/2025 170.82 cm 27.2 kg/m2 94362.66 g 125/81 mm[Hg] Delma Kothari [facility] 01/07/2025 12:36:50 Date Recorded Body height Systolic And Diastolic Provider Name and Address Organization Details Last Updated DateTime 01/28/2022 170.82 cm 118/74 mm[Hg] Lina Joy [facility] 01/28/2022 13:00:47 Date Recorded Body height Body mass index (BMI) Body weight Systolic And Diastolic Provider Name and Address Organization Details Last Updated DateTime 04/05/2023 170.82 cm 28.1 kg/m2 02528.22 g 123/77 mm[Hg] Kathleen Hutchinson [facility] 04/05/2023 15:05:01 Date Recorded Body height Body mass index (BMI) Body weight Systolic And Diastolic Provider Name and Address Organization Details Last Updated DateTime 04/10/2024 170.82 cm 24.9 kg/m2 03799.78 g 119/81 mm[Hg] Antonette Anthony [facility] 04/10/2024 12:06:44 Social History Question Answer Notes LastModified by Organizat ion Details LastModified Time Tobacco Smoking Status Never Smoker Lina Joy jed, [facility] 11/09/2020 14:49:41 Are You Blind Or [...] Or The Highest Degree You Have Received? 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 Occasional Information not available 11/09/2020 Mental Status Question Answer Note LastModified by Organization D etails LastModified Time Do you feel stressed (tense, restless, nervous, or anxious, or unable to sleep at night)? [id number] Information not available 11/09/2020 Family History Relationship [...] SNOMED-CT Code Diagnosis ICD10 Code Diagnosis Note [id number] [facility] [address] [address] 11/10/2020 09:29:17 11/10/2020 09:58:58 Gynecologic examination 59546597 Z01.419 Take Calcium with Vitamin D 1200mg [...] start 22yo Doing well no issues. No stereotyper apprentice related problems. Declined need std screening Happy on Loestrin FE 07/29 [id number] [facility] [address],[facility] [place] [address] 11/19/2021 12:35:04 11/19/2021 13:10:43 Gynecologic examination 10364546 Z01.419 Take Calcium with Vitamin D 1200mg [...] doesn't have to think about BC daily. [facility] 132376888 Z30.9 Discussed all control options in great [...] any issues prior to 3mos med check [id number] Opal Fabian [facility] [address] [address] 01/28/2022 12:50:52 01/31/2022 16:17:42 Vaginitis 78222064 N76.0 Suspect yeast one examSwabs sentRx sentWill contact if further treatment needed. Counseled on medication R/B's, Most common side effects, & use. All questions were answered to patient satisfacti on. Time spent in visit is a total of 15 mins with at least 50% of visit consisting of counseling and review of plan of care. [id number] Opal Fabian , [facility] [address],[place] [address] 09/15/2022 13:53:24 09/15/2022 14:28:25 Thrombosed external hemorrhoids 65544918 K64.5 Today we discuss using rx'd products [...] counseling and review of plan of care. [id number] Opal Fabian , [facility] [address],[place] [address] 04/05/2023 14:49:38 04/05/2023 16:40:27 Gynecologic examination 01209592 Z01.419 Take Calcium with Vitamin D 1200mg [...] naRoutine Labs PCP Contracept ion care management 080533812 Z30.9 Happy on nuvaringWi shes to continueRF sent x 1yr Vaginitis 55332490 N76.0 Suspect yeast on examWill update if any other issues present on pap Counseled on medication R/B's, Most common side effects, & use. All questions were answered to patient satisfacti on. [id number] ANAHI GARCIA MD [place] [address] [address] 04/10/2024 11:48:01 04/10/2024 14:19:11 Venereal disease screening 353870529 Z11.3 Pt requested STI testing.Di scussed the various types of STDs, related symptoms and the potential consequenc es (including effects on fertility) of STD infections . Reviewed ways to limit exposure and prevention techniques . Screening procedure 2012 5006 Z13.9 [id number] Syed Lamar MD [place] [address] [address] 01/07/2025 12:24:43 01/07/2025 13:05:42 Abnormal uterine bleeding [id number] 9100 N93.9 The patient and I discussed [...] ID Guarantor Name 01/06/2025 1 [employer] [id number] Otis Canchola Rodneygreg [id number] Barb Montes Anna Marie 01/07/2025 1 [employer] [id number] Barb Thrasher [id number] Barb Thrasher Notes Date Note Type Note Provider Name and Address Organization Details Recorded Time 01/28/2022 text/html Here today for d/c, irritation, itch.Has nuvaring.No new sexual partnerNeg urinary sx'sNeg gi sx'sNeg pelvic painNeg vag odor [facility] [address], [place], [address], [facility] 01/28/2022 17:39:17 09/15/2022 text/html Here today for concern of symptomatic ext hemorrhoid.Sx's started 1 day agoFeels swollen, somewhat tender, but not unbearable with sitting or daily activity.Her BMs are easily evacuated but does have a hx of constipationHas not tried anything for this issue. Neg pain of abd/pelvis/flankNe g urinary sx'sNeg GI sx'sNeg N/V/F/C/DNeg Vag d/c, odor, irritation, itching ELKIN [facility] [address], [place], [address], [facility] 09/15/2022 14:25:43 04/05/2023 text/html Annual GYNReport [...] Followed with yearly pap smears Opal Fabian, [facility]- [address], [place], [address], [facility] 04/05/2023 16:40:22 04/10/2024 text/html Patient presents for STI testing. Patient denies symptoms. Patient also requests a test, denies missed period. Patient states that her periods have been quantitative manager and 2-3 days in duration since stopping Nuvaring. Patient declines BC as she states that she does not plan to become sexually active again in the near future. VON FERRELL NP [address], [place], [address], [facility] 04/10/2024 17:07:53 01/07/2025 text/html 24 y/o [...] itching VON FERRELL NP [address], [place], [address], [facility] 01/07/2025 13:05:15 OBGyn Episode No OBEpisode recorded.
--- NOTE | 2025-01-24 08:12 | P.PNAN_ITS ---
Anes - Initial Pre Proc Eval Procedure: Operation Date: 01/24/25 09:30 Proposed Procedures p Excisional Hemorrhoidectomy, Possible Banding Internal Hemorrhoids - Cristhian Ledezma MD Date/Time: 01/24/25 08:12 Surgeon: Cristhian Ledezma MD Pre Op Diagnosis: hemorrhoids Patient Data Age: 24 Gender: F Height: 1.7 m Weight: 75 kg Allergies Allergy/AdvReac Type Severity Reaction Status Date / Time chlorhexidine Allergy Mild Rash Verified 01/21/25 15:49 Home Medications ?Medication ?Instructions ?Recorded ?Confirmed ?Type lamotrigine 200 mg tablet 200 mg PO DAILY 11/12/24 01/21/25 History lurasidone 40 mg tablet 40 mg PO HS 11/12/24 01/21/25 History ferrous sulfate 325 mg (65 mg 325 mg PO DAILY 01/09/25 01/21/25 History iron) tablet,delayed release docusate sodium 100 mg capsule 100 mg PO DAILY 01/21/25 01/21/25 History (Colace) Patient hx anesthesia problems: none Family hx anesthesia problems: none Results Review: All pre-operative results and documents have been reviewed as part of the pre- operative evaluation. [facility] Past Medical History Medical History (Updated 01/24/25 @ 08:12 by Erick Douglas DO) Bipolar disorder Allergies Posterior tibial tendon dysfunction (PTTD) of left lower extremity Accessory navicular bone of left foot Social History Social History (Updated 01/16/25 @ 13:59 by Lorena Tracy MA) Smoking status: Current every day smoker Tobacco type: e-cigarettes/vaping Smokeless tobacco user: chewing tobacco Alcohol intake: current Alcohol use details: 1-4/week Substance use: current Substance use type: marijuana Other substance usage details: daily- smoke Do You Feel Safe in your Home?: Yes Lack of Transportation: No Lack of Food: Never True Current Housing: I Have Housing Concerned About Future Housing: No Difficulty Paying Gas/Electric Bills: No Difficulty Paying for Meds: No Currently Unemployed: No Education: Associate Degree Difficulty w/ Childcare or Family Care: No Living arrangements: with family Spiritual care concerns: No Agree to blood products: Yes Anes - Eval Final PreProcedure Day of Procedure 01/24/25 08:12 Patient weight: overweight Heart: regular rate and rhythm Lungs: clear to auscultation Airway: Mallampati scale class II Neurological: alert and oriented Last oral intake: >/= 8 hours ASA classification: III Emergent: no Anesthetic plan: proceed Anesthesia type and monitoring: general ETT and standard monitoring Results Review: All pre-operative results and documents have been reviewed as part of the pre- operative evaluation. Informed Consent: The patient's anesthetic plan and its attendant risks and benefits were discussed with the patient/family/POA. Questions were solicited and answers provided to the satisfaction of the patient/family/POA.
[2025-01-24] MEDS: LACTATED RINGERS 1,000 ML 30 ML IV CONT ×2 (08:40→10:50)
[2025-01-24] MEDS: KETOROLAC 15 MG/ML VIAL (*BKC) IV PUSH (08:40)
[2025-01-24] MEDS: ACETAMINOPHEN 500 MG TABLET 1000 MG PO (08:40)
--- NOTE | 2025-01-24 09:21 | WPDHPUPDATE1 ---
History and Physical Update Update Date/Time: 01/24/25 09:21 History and Physical has been reviewed, including an updated exam of the patient. There are NO changes in the patient's condition. Risks, benefits, and alternatives have been discussed and questions answered. Patient agrees to proceed with procedure.
[2025-01-24 09:25] LABS: BEDSIDEPREGUCG Negative (Negative)
[2025-01-24] MEDS: ceFAZolin 2 GM in SODIUM CHLORIDE 0.9% IV 50 ML 100 ML IVPB (10:03)
--- NOTE | 2025-01-24 10:20 | S_PTH ---
PATIENT: Barb Thrasher LOC: [facility] U#:[id number] AGE/SX: 24/F ROOM: RE01/24/[address]: Cristhian Ledezma MD : 2000 BED: DIS: 01/24/2025 SPEC #: [id number] RECD: 01/24/25 11:55 STATUS: BLESSING REQ #: [id number] YOLIE: 01/24/25 10:[address]: Cristhian Ledezma DEPT: [facility] Surgical RECD BY: Ana Kendrick ENTERED: 01/24/25 11:55 SP TYPE: Surgical OTHR DR: Paul Gaspar MD Tissues: A - Hemorroid Procedures: Hematoxylin and Eosin Stain Gross and Microscopic Level 3
[2025-01-24] MEDS: LIDOCAINE 2% GEL UROJET 10 ML PKG MUCOUS MEM (10:30)
--- NOTE | 2025-01-24 11:05 | W.PM.PROC2 ---
Procedure Note - Detailed Date of Procedure 01/24/25 Pre-op Diagnosis Symptomatic internal and external hemorrhoids. Post-op Diagnosis Same Procedure Performed Excisional hemorrhoidectomy x1 and banding of internal hemorrhoids x3 Surgeon Cristhian Ledezma MD Meteorologist In Charge PIERRE Luo Anesthesia General Indications Patient is a 24-year-old female who has had some longstanding combined internal and external hemorrhoids which have been enlarging and becoming symptomatic with pain. She has 1 particular which is large and prolapsing anteriorly at the 6 o'clock position with the patient prone. She also has smaller internal hemorrhoids which are not prolapsing. Findings Patient a large combined internal and external hemorrhoid located at the 6 o'clock position anteriorly with the patient prone. She also had 3 smaller grade 2 internal hemorrhoids located at the 12 o'clock, 3 o'clock and 9 o'clock positions with the patient prone. No this is or polyps were seen in the distal rectum or anal canal. No anal fissures or fistulas were seen. Description of Procedure After informed consent was obtained patient brought to the operating room she was placed in the supine position on the gurney and then placed under general endotracheal anesthesia. She was then turned onto the operating table in the prone fern-knife position with all the pressure points well padded. The buttocks were then taped apart to expose the perianal region. The area was then prepped and draped usual sterile fashion. A time-out was then performed correctly identifying the patient as well as procedure to be performed. She was given perioperative IV antibiotics. I 1st started by dilating the anal sphincters gently with a lubricated anal speculum. A circumferential evaluation of the distal rectum and anal canal revealed no polyps or lesions. There was a large combined internal and external hemorrhoid which was nonthrombosed at the 6 o'clock position anteriorly with the patient prone. Smaller grade 2 internal hemorrhoids were seen at the 12 o'clock, 3 o'clock, and 9 o'clock positions with the patient prone. I then proceeded to perform excisional hemorrhoidectomy of the combined internal-external hemorrhoid anteriorly and banding of the 3 remaining smaller internal hemorrhoids. I 1st started by injecting a combination of 1% lidocaine mixed with 0.5% Marcaine in a 50 50 mixture underneath the largest hemorrhoid at the 6 o'clock position anteriorly. Then I placed an Allis clamp onto the hemorrhoid and with traction on the hemorrhoid placed a 2-0 chromic suture at the apex of the hemorrhoid above the dentate line. I then incised the tissue in a allen configuration either side the hemorrhoid tissue out to the anal verge and perianal skin. I then dissected in the plane superficial to the internal and external sphincter muscle fibers spreading with a pair of Metzenbaum scissors and then excising the hemorrhoid tissue superficial to the sphincter muscles. The specimen was passed off table sent to pathology labeled as hemorrhoid at 6 o'clock position. The 2-0 chromic suture was then run in a locking fashion at to the perianal skin. I then transition to a 3-0 Vicryl suture to close the incision on the perianal skin in a running locking fashion. I then irrigated out the anal canal sterile saline solution. The 3 remaining grade 2 internal hemorrhoids which were nonthrombosed at the 12 o'clock, 3 o'clock, and 9 o'clock positions. The same local anesthetic mixture was then injected underneath all 3 of these hemorrhoids and then a rubber-band ligated with double bands was used to apply liver bands to the internal hemorrhoid tissue in the these 3 positions. I then irrigated out the canal sterile saline solution. Gelfoam soaked with 1% lidocaine was then placed into the anal canal for packing. I then injected the remaining portion of the local anesthetic mixture in the perianal region for perianal block as well as injecting bilateral pudendal nerve blocks. There is then cleaned and then 4x4 gauze, ABD pad, and disposable underwear was used for final dressing. The patient tolerated the procedure well no complications. All sponges, needles, and instrument counts were correct at the end procedure. EBL was _25__cc. The patient was awakened and taken to recovery in stable and satisfactory condition. Implants None Estimated Blood Loss 25 Drains No Packing Yes (1% lidocaine soaked Gelfoam packing to anal canal) Pathology Yes (Hemorrhoid tissue to pathology) Complications No immediate complications Condition Stable Disposition PACU [facility] Billing Surgery - Charge Forward: Surgery Billing
== END 2025-01-24 12:33 | disposition home or self-care (01) ==
PROVIDERS: PCP Internal Medicine; Visit Provider Surgery
PROC: (CPT 46255; principal; 2025-01-24 09:30)
DX: K64.1 Second degree hemorrhoids (principal); K64.4 Residual hemorrhoidal skin tags
CPT/HCPCS: 46255; 88304; J0690; A9270; J0330; J1100; J1885; J2003; J2004; J2250; J2405; J2704; J3010; J7120